=== PATIENT | female | born 1960 | race Caucasian/White ===

== ENCOUNTER 2023-10-30 20:42 | Emergency (ER) | payer MEDICARE, SELFPAY ==
[2023-10-30 20:44] VITALS: BP 156/99; PULSE 65; RESP 20; TEMP 36.6; O2SAT 98; BMI 21.4
--- NOTE | 2023-10-30 21:14 | ED_ITS ---
HPI - Anxiety General: Chief Complaint: Anxiety Stated Complaint: htn, anxiety Time Seen by Provider: 10/30/23 20:44 History of Present Illness: Patient reports to the ER by EMS with hypertension. The patient took her blood pressure is approximately 175/110 and she got anxious and family called EMS because they did not want her to have a stroke. Patient does admit to drinking 8 beers today. And having some shortness of breath headache and dizziness for the last 3 days. Patient does report history of hypertension but is not been to the doctor in 6 very months and takes no medicines.. Patient does appear anxious at this time. Family is with patient at bedside patient is reluctant to do any treatment at all. And has declined to have anything done by the EMS on her way here. Review of Systems General: Reports: 10 or more systems reviewed and unremarkable except in HPI and below Physical Exam Const: COMMON NORMALS: no acute distress, average body habitus, patient oriented x3, no limitations, healthy appearing, alert and well nourished HENMT: COMMON NORMALS: normocephalic, atraumatic, hearing grossly normal bilaterally, external ears normal, Normal external nose present, moist oral mucous membranes and oropharynx normal HEAD & SCALP: normocephalic and atraumatic NOSE: Normal external nose present EXTERNAL EAR: Yes external ears normal Neck/C-Spine: COMMON NORMALS: no JVD Chest: COMMONS NORMALS: normal inspection of the chest and normal palpation of entire chest wall Resp: COMMON NORMALS: normal respiratory effort, No retractions, No use of accessory muscles and clear to auscultation bilaterally AUSCULTATION: clear to auscultation bilaterally Cardio: COMMON NORMALS: no JVD, regular rate, regular rhythm, S1 normal heart sound present, S2 normal heart sound present, No gallops present (Cardio), No clicks present (Cardio), No murmurs present (Cardio) and No rub (Cardio) RATE: regular rate RHYTHM: regular rhythm HEART SOUNDS: S1 normal heart sound present and S2 normal heart sound present GI: COMMON NORMALS: Normal to inspection, nondistended, normoactive bowel sounds present, Soft to palpation, non-tender, No hepatosplenomegaly present and no masses PALPATION: Yes Soft to palpation and Yes No hepatosplenomegaly present Neuro: COMMON NORMALS: patient oriented x3 SENSORIUM/ORIENTATION: Yes alert Course Vital Signs: Vital signs: Vital Signs Temperature 97.8 F 10/30/23 20:44 Pulse Rate 65 10/30/23 20:44 Respiratory Rate 20 H 10/30/23 20:44 Blood Pressure 156/99 10/30/23 20:44 Pulse Oximetry 98 10/30/23 20:44 MDM - Anxiety Medical Decision Making Patient is reluctant to have any testing done here. Upon patient's arrival her blood pressure was 156/99. Family is at bedside and said they will make her take her blood pressure on a daily basis keep a blood pressure log and take her to her family doctor. Patient has insurance and she can afford to go where she has not had in the past. Differential Diagnosis Likely acute anxiety; Unlikely hyperventilation or panic disorder Medical Records I reviewed the patient's medical records. Lab Data I reviewed the patient's lab results. No radiology studies performed this visit Discharge Plan Discharge Patient Disposition: Home Clinical Impression: Acute anxiety, Hypertension Condition: Stable Discharge Orders: Discharge ED (Routine); Ordered 10/30/23 Ordered By: Iván Collado Patient Instructions: Anxiety (ED), Hypertension Activity Restrictions/Additional Instructions: Please purchase a blood pressure cuff and take your blood pressure at least 1 time daily and keep a log. Please bring that log to your next family practice doctors appointment. Please try to make this appointment within the next 1 or 2 weeks for further evaluation and treatment of your anxiety and your blood pressure. Coding Level of Care Code ED Broadband Installer for Roxanne Ellison
== END 2023-10-30 21:28 | disposition home or self-care (01) ==
PROVIDERS: Emergency Provider Emergency Medicine
DX: F41.9 Anxiety disorder, unspecified (principal); I10 Essential (primary) hypertension
CPT/HCPCS: 99282

== ENCOUNTER 2025-06-30 11:41 | Emergency (ER) | payer OTHER, SELFPAY ==
[2025-06-30 11:50] VITALS: BP 153/92; PULSE 86; RESP 16; TEMP 36.7; O2SAT 96
--- OUTSIDE RECORDS SUMMARY | 2025-06-30 11:50 | XMS_ITS | Encounter Summary ---
Author Organization [facility] Address 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 Gender Identity Not on file Sexual Orientation Not on file documented as of this encounter Plan of Treatment Not on file documented as of this encounter Procedures Procedure Name Priority Date/Time Associated Diagnosis Comments HEPATITIS B SURFACE AB, QUANT Routine 06/04/2018 11:58 AM CDT documented in this encounter Results * HEPATITIS B SURFACE AB, QUANT (06/04/2018 11:58 AM CDT) HEPATITIS B SURF AB,QN 1,000.0 mlU/mL 06/04/2018 9:33 PM CDT [facility] HEPATITIS B SURFACE AB INTERP Reactive See Interp 06/04/2018 9:33 PM CDT [facility] Blood Venipuncture / Unknown 06/04/2018 11:58 AM CDT 06/04/2018 12:16 PM CDT Narrative [facility] - 06/04/2018 9:33 PM CDT Patient has immunity to Hepatitis B virus. This assay is used to determine immune status to Hepatitis B as greater than or equal to 10 mIU/mL as per CDC guidelines (MMWR:vol 55: RR-16, 2006). us External Provider [facility] CHEMISTRY ORDERABLES Glenna warren Result Performing Organization Address [facility]/ZIP Co de Phone Number [facility]# [id number] [address] [facility] [place] [address] documented in this encounter Visit Diagnoses Not on filedocumented in this encounter Care Teams Internet Project Manager Relationship Specialty Start Date End Date Reno Vega DO [address] [place] [address] PCP - General Family Practice 09/10/17 documented as of this encounter
--- OUTSIDE RECORDS SUMMARY | 2025-06-30 11:50 | XMS_ITS | Clinical Summary ---
Author Organization [facility] Address [address] [place] [address] Phone Care Team Providers Care Phytochemistry Professor Name Role Phone Reno Vega DO Primary Care Provider [phone] Allergies No known active allergies Medications predniSONE (DELTASONE) 20 mg tabletIndications :Spider bite wound, undetermined intent, initial encounter Take 1 Tablet (20 mg) by mouth daily. 5 Tablet 5 Active mupirocin (BACTROBAN) 2 % OintmentIndicatio ns:Spider bite wound, undetermined intent, initial encounter Apply to affected area daily. 30 Gram 5 Active Active Problems No known active problems Encounters Date Type Department Care Team Description 06/21/2025 External Device Data [facility] ABSTRACTION Provider, Abstract 05/31/2025 External Device Data [facility]CTION Provider, Abstract 05/09/2025 External Device Data [facility] Provider, Abstract 04/25/2025 External Device Data [facility] AB[facility]CTION Provider, Abstract 04/25/2025 External Device Data [facility] AB[facility]CTION Provider, Abstract 04/25/2025 External Device Data [facility]CTION Provider, Abstract 04/24/2025 Results Follow-Up [address] [phone] Rosa Pablo NP C-REACTIVE PROTEIN, COMPREHENSIVE METABOLIC PANEL, CBC WITH DIFFERENTIAL 04/21/2025 4:00 PM CDT Office Visit [address] [phone] Rosa Pablo NP Spider bite wound, undetermined intent, initial encounter (Primary Dx); Screening mammogram, encounter for from Last 3 Months Immunizations Immunization Administration Dates Next Due Influenza Seasonal Unspecified Formulation IM ,08/17/2017 Social History Tobacco Use Types Packs/Day Years Used Date Smoking Tobacco: Every Day Cigarettes Smokeless Tobacco: Never Tobacco Cessation:Ready to Q uit: Not Asked; Counseling Given: Not Answered Comments No Sex and Gender Information Value Date Recorded Sex Assigned at Not on file 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 Gender Identity Not on file Sexual Orientation Not on file Last Filed Vital Signs Vital Sign Reading Time Taken Comments Blood Pressure 138/81 04/21/2025 3:52 PM CDT Pulse 95 04/21/2025 3:52 PM CDT Temperature 36.9 C (98.4 F) 04/21/2025 3:52 PM CDT Respiratory Rate 16 04/21/2025 3:52 PM CDT Oxygen Saturation 98% 04/21/2025 3:52 PM CDT Inhaled Oxygen Concentration - - Weight 57.5 kg (126 lb 12.8 oz) 04/21/2025 3:52 PM CDT Height 157.5 cm (5' 2 ) 04/21/2025 3:52 PM CDT Body Mass Index 23.19 04/21/2025 3:52 PM CDT Plan of Treatment Health Maintenance Due Date Last Done Comments FIT/ DNA Q 3 YEARS (AUTO ORDER) 1977 FIT/FOBT Q 1 YEAR (AUTO ORDER) 1977 DTAP/TDAP/TD VACCINES (1 - Tdap) 1978 PNEUMOCOCCAL VACCINE 50+ YEA RS (1 of 2 - PCV) 1978 BREAST CANCER SCREENING 1999 COLORECTAL CANCER SCREENING (AUTO ORDER) 2004 COLORECTAL SCREENING 2004 Colorectal Cancer Screening 2004 FIT-DNA Q 3 years 2004 FIT/FOBT Q 1 year 2004 Flex Sig/CT Colonography Q 5 years 2004 ZOSTER VACCINE (1 of 2) 2009 Colorectal Cancer Screening (AUTO ORDER) 12/31/2011 FLEX SIG/CT COLONOGRAPHY Q 5 YEARS (AUTO ORDER) 12/31/2011 12/31/2006, 12/31/2006 [place] Prev entative Visit/Annual Wellness Visit 11/16/2024 OSTEOPOROSIS SCREENING 2024 INFLUENZA VACCINE (#1) 2025 08/02/2018, 2016 RSV VACCINE (60+ or ) (1 - 1-dose 75+ series) 2034 Procedures Procedure Name Priority Date/Time Associated Diagnosis Comments CBC WITH DIFFERENTIAL Routine 04/21/2025 4:27 PM CDT Spider bite wound, undetermined intent, initial encounter COMPREHENSIVE METABOLIC PANEL Routine 04/21/2025 4:27 PM CDT Spider bite wound, undetermined intent, initial encounter C-REACTIVE PROTEIN Routine 04/21/2025 4: 27 PM CDT Spider bite wound, undetermined intent, initial encounter from Last 3 Months Results * (ABNORMAL) CBC WITH DIFFERENTIAL (04/21/2025 4:27 PM CDT) WBC 10.5 3.8 - 10.8 Thousand/u L [facility] RBC 4.53 3.80 - 5.10 Million/uL [facility] HEMOGLOBIN 15.2 11.7 - 15.5 g/dL [facility] HEMATOCRIT 47.1(H) 35.0 - 45.0 % [facility] MCV 104.0(H) 80.0 - 100.0 fL [facility] MCH 33.6(H) 27.0 - 33.0 pg [facility] MCHC 32.3 32.0 - 36.0 g/dL [facility] Comment: For adults, a slight decrease in the calculated MCHC value (in the range of 30 to 32 g/dL) is most likely not clinically significant; however, it should be interpreted with caution in correlation with other red cell parameters and the patient's clinical condition. RDW 11.8 11.0 - 15.0 % [facility] PLATELETS 276 140 - 400 Thousand/u L [facility] MPV 11.4 7.5 - 12.5 fL [facility] NEUTROPHIL ABSOLUTE 4,725 1,500 - 7,800 cells/uL [facility] LYMPHOCYTE ABSOLUTE 4,851(H) 850 - 3,900 cells/uL [facility] MONOCYTE ABSOLUTE 546 200 - 950 cells/uL [facility] EOSINOPHIL ABSOLUTE 315 15 - 500 cells/uL [facility] BASOPHILS ABSOLUTE 63 0 - 200 cells/uL [facility] NEUTROPHIL 45 % [facility] LYMPHOCYTES 46.2 % [facility] MONOCYTE 5.2 % [facility] EOSINOPHILS 3.0 % [facility] BASOPHILS 0.6 % [facility] Comment: Test Performed at: [facility] [id number] [facility] [place] [address] Zuri Pierce MD Blood 04/21/2025 4:27 PM CDT 04/23/2025 4:41 AM CDT us Rosa Pablo NP HEMATOLOGY ORDERABLES Final Re sult Performing Organization Address [facility]/ZIP Co de Phone Number [facility] [phone] [facility] [address] [place] [phone] * C-REACTIVE PROTEIN (04/21/2025 4:27 PM CDT) [facility] CRP 3.7 <8.0 mg/L [facility] Comment: Test Performed at: [facility] [address] [place] [address] Zuri Pierce MD Blood 04/21/2025 4:27 PM CDT 04/23/2025 4:41 AM CDT us Rosa Pablo CENTRAL SUPPLY AIDE CHEMISTRY ORDERABLES Final Res ult Performing Organization Address [facility]/ZIP Co de Phone Number [facility] [phone] [facility] [address] [place] [address] * (ABNORMAL) COMPREHENSIVE METABOLIC PANEL (04/21/2025 4:27 PM CDT) GLUCOSE 85 65 - 99 mg/dL [facility] Comment: Fasting reference interval BUN 11 7 - 25 mg/dL [facility] CREATININE 0.53 0.50 - 1.05 mg/dL [facility] GFR 103 > OR = 60 mL/min/1. 73m2 [facility] BUN/CREAT RATIO SEE NOTE: 6 - 22 (calc) [facility] Comment: Not Reported: BUN and Creatinine are within reference range. SODIUM 139 135 - 146 mmol/L [facility] POTASSIUM 4.2 3.5 - 5.3 mmol/L [facility] CHLORIDE 104 98 - 110 mmol/L [facility] CO2 27 20 - 32 mmol/L [facility] CALCIUM 10.7(H) 8.6 - 10.4 mg/dL [facility] TOTAL PROTEIN 7.0 6.1 - 8.1 g/dL [facility] ALBUMIN 4.5 3.6 - 5.1 g/dL [facility] GLOBULIN 2.5 1.9 - 3.7 g/dL (calc) [facility] ALBUMIN/GLOBULIN RATIO 1.8 1.0 - 2.5 (calc) [facility] BILIRUBIN TOTAL 0.5 0.2 - 1.2 mg/dL [facility] ALKALINE PHOSPHATASE 110 37 - 153 U/L [facility] AST 17 10 - 35 U/L [facility] ALT 9 6 - 29 U/L [facility] Comment: Test Performed at: [facility] [id number] [place] [address] Zuri Pierce MD Blood 04/21/2025 4:27 PM CDT 04/23/2025 4:41 AM CDT us Rosa Pablo CENTRAL SUPPLY AIDE CHEMISTRY ORDERABLES Final Res ult [facility] [phone] [facility] [address] [place] [address] from Last [address] [facility] OPEN ACCESS [facility] [place]ICAID [place] Care Teams Phytochemistry Professor Relationship Specialty Start Date End Date Reno Vega DO [address] [place] [address] PCP - General Family Practice 09/10/17
--- OUTSIDE RECORDS SUMMARY | 2025-06-30 11:50 | XMS_ITS | Encounter Summary ---
Author Organization [facility] Address 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 Gender Identity Not on file Sexual Orientation Not on file documented as of this encounter Plan of Treatment Not on file documented as of this encounter Procedures Procedure Name Priority Date/Time Associated Diagnosis Comments URINALYSIS DIPSTICK ONLY Routine 06/03/2017 9:46 AM CDT RUBEOLA IGG Routine 06/03/2017 9:46 AM CDT RUBELLA IGG Routine 06/03/2017 9:46 AM CDT MUMPS IGG ANTIBODY Routine 06/03/2017 9: 46 AM CDT documented in this encounter Results * URINALYSIS DIPSTICK ONLY (06/03/2017 9:46 AM CDT) COLOR UA Yellow Pale to Dark Yellow 06/03/2017 10:50 AM CDT [facility] [place] CLARITY UA Clear Clear 06/03/2017 10:50 AM CDT [facility] [place] SPECIFIC GRAVITY UA 1.015 1.001 - 1.035 06/03/2017 10:50 AM T [facility] - [place] PH UA 7.0 5.0 - 8.0 06/03/2017 10:50 AM CDT [facility] [place] LEUKOCYTE ESTERASE UA Negative Negative 06/03/2017 10:50 AM CDT [facility] [place] NITRITE UA Negative Negative 06/03/2017 10:50 AM CDT [facility] [place] PROTEIN UA Negative Negative 06/03/2017 10:50 AM CDT [facility] [place] GLUCOSE UA Negative Negative 06/03/2017 10:50 AM CDT [facility] [place] KETONES UA Negative Negative 06/03/2017 10:50 AM CDT [facility] [place] UROBILINOGEN UA 0.2 <2.0 mg/dL 7 10:50 AM T [facility] [place] BILIRUBIN UA Negative Negative 06/03/2017 10:50 AM T [facility] [place] BLOOD UA Negative Negative 06/03/2017 10:50 AM T [facility] [place] Urine URINE SPECIMEN OBTAINED BY CLEAN CATCH PROCEDURE / Unknown Collection / Unknown 06/03/2017 9:46 AM CDT 06/03/2017 9:46 AM CDT us External Provider [facility] URINE ORDERABLES Final Re sult [facility] [employer] [facility]# [id number] [address] [place] [address] * MUMPS IGG ANTIBODY (06/03/2017 9:46 AM CDT) [facility] MUMPS IGG AB Negative 06/04/2017 3:19 PM CDT [facility] Comment: REFERENCE VALUE Vaccinated: Positive (>=1.1 AI) Unvaccinated: Negative (<=0.8 AI) MUMPS IGG INDEX 0.7 07/20/201 7 3:19 PM CDT [facility] Comment: Test Performed by: [address] [address] Blood Venipuncture / Unknown 06/03/2017 9:46 AM CDT 06/03/2017 9:46 AM CDT External Provider [facility] CHEMISTRY ORDERABLES Glenna l Result Performing Organization Address [facility] Co de Phone Number [facility] * RUBEOLA IGG (06/03/2017 9:46 AM CDT) RUBEOLA IGG Negative 06/04/2017 3:19 PM CDT [facility] Comment: REFERENCE VALUE Vaccinated: Positive (>=1.1 AI) Unvaccinated: Negative (<=0.8 AI) RUBEOLA IGG INDEX 0.4 06/04/2017 3:19 PM CDT [facility] Comment: Test Performed by: [address] [address] Blood Venipuncture / Unknown 06/03/2017 9:46 AM CDT 06/03/2017 9:46 AM CDT External Provider [facility] CHEMISTRY ORDERABLES Glenna l Result Performing Organization Address [facility] de Phone Number [facility] * RUBELLA IGG (06/03/2017 9:46 AM CDT) RUBELLA IGG IMMUNE Immune - Positive 06/03/2017 9:59 PM CDT [facility] Blood Venipuncture / Unknown 06/03/2017 9:46 AM CDT 06/03/2017 9:46 AM CDT [facility] - 06/03/2017 9:59 PM CDT A positive result suggests response to immunization or prior exposure to the virus. us External Provider [facility] CHEMISTRY ORDERABLES Glenna kelvin Result [facility]# [id number] [address] [facility] [place] [address] documented in this encounter Visit Diagnoses Not on filedocumented in this encounter Care Teams Plateman Relationship Specialty Start Date End Date Reno Vega DO [address] [place] [address] PCP - General Family Practice 09/10/17 documented as of this encounter
--- NOTE | 2025-06-30 14:01 | ED_ITS ---
HPI - Skin/Abscess/Foreign Bdy 2 General: Chief complaint: Skin/Abscess/Foreign Body Stated complaint: L side face spider bite worse Time Seen by Provider: 06/30/25 13:11 History of Present Illness: Patient is a 64-year-old female, comes in complaining of left cheek lesion. Initially, patient woke up and first week of April with a red spot to her left side of her cheek. She was seen by a [facility] clinic a week after this events, and was diagnosed with brown recluse bite. Patient stated she did not see a spider or feel a spider bite her, however she noted a spider in her kitchen after these events. Her daughter notes she was on antibiotics for 1 week, steroids for 5 days and then has not followed up due to no primary care physician. Associated symptoms: Deny chills, fever(s), nausea or vomiting Related Data Previous Rx's ?Medication ?Instructions ?Recorded doxycycline hyclate 100 mg capsule 100 mg PO BID 10 da ys #20 caps 06/30/25 Allergies Allergy/AdvReac Type Severity Reaction Status Date / Time No Known Allergies Allergy Verified 06/30/25 11:53 Review of Systems 2 General: Reports: 10 or more systems reviewed and unremarkable except in HPI and below Const: Denies: fever(s) or chills Eyes: Denies: change in vision, blurry vision, photophobia or eye discomfort ENMT: Reports: other (large lesion to left cheek); Denies: throat pain or mouth pain Card: Denies: chest pain, palpitations or swelling of feet/ankles Resp: Denies: dyspnea or non-productive cough GI: Denies: abdominal pain, nausea or vomiting : Denies: flank pain, dysuria or urinary incontinence Musc: Denies: neck pain or extremity pain Skin/Breast: Reports: skin tenderness and new lesions Neuro: Denies: headache(s) or numbness in extremities Psych: Denies: anxiety or depression Physical Exam 2 Const: COMMON NORMALS: patient oriented x3 HENMT: FACE & SINUS IMAGES: 1. large 6x5 cm, black center with rounded, erythematous edges Neck/C-Spine: COMMON NORMALS: full ROM, no lymphadenopathy and supple Lymph: LYMPHATIC: no lymphadenopathy noted Chest: COMMONS NORMALS: normal inspection of the chest and normal palpation of entire chest wall Resp: COMMON NORMALS: normal respiratory effort, No retractions and clear to auscultation bilaterally AUSCULTATION: clear to auscultation bilaterally Cardio: COMMON NORMALS: regular rate and regular rhythm RATE: regular rate RHYTHM: regular rhythm GI: COMMON NORMALS: Normal to inspection, nondistended, normoactive bowel sounds present, Soft to palpation and non-tender PALPATION: Yes Soft to palpation : COMMON NORMALS: Yes no CVA tenderness BLADDER/KIDNEY EXAM: Yes no CVA tenderness Back/Pelvis: COMMON NORMALS: no CVA tenderness Extremity: COMMON NORMALS: normal to inspection, full ROM and capillary refill normal Neuro: LOUISE COMA SCALE: document GCS findings COMMON NORMALS: patient oriented x3, CN's II-XII intact bilaterally and moves all extremities Psych: COMMON NORMALS: mental status grossly normal and Normal thought process present THOUGHT PROCESS: Normal thought process present Skin: COMMON NORMALS: no rashes or lesions noted, no wounds and turgor normal GENERAL SKIN EXAM: no rashes or lesions noted and turgor normal Course 2 Vital Signs: Vital signs: Vital Signs Temperature 98.0 F 06/30/25 11:50 Pulse Rate 78 06/30/25 14:14 Respiratory Rate 16 06/30/25 14:14 Blood Pressure 132/76 06/30/25 14:14 Pulse Oximetry 98 06/30/25 14:14 Oxygen Delivery Me thod Room Air 06/30/25 11:50 MDM - Skin/Abscess/Foreign Bdy Medicial Decision Making Patient's history is that she awoke first part of April with a small red area to her mid cheek, saw a [facility] clinic a week later which the wound then had black in the center, was diagnosed with brown recluse bite, treated with antibiotics, and steroids. Patient did not see or feel a bite, however she found a brown recluse in her kitchen after these events occurred. On physical examination, her left facial cheek appears to be consistent with a squamous cell carcinoma. However, typically a history of squamous cell carcinoma is more timely in nature. Patient is somewhat unsure of her history however is reassured and her daughter is the one that mainly gives the historian. Regardless, at this time, I would not feel comfortable moving forward with a diagnosis of brown recluse bite, and would be more comfortable with patient going to dermatology for biopsy and further care. If dermatology deems appropriate, patient then can go to wound care. Will treat her for localized cellulitis to this area with her friable red edges of this wound on her face, although I am not convinced it does need an antibiotic course. More than anything, it needs a biopsy. I discussed all of this with the patient and her daughter, that state understanding and referred her to dermatology as well. All of their questions answered to their satisfaction. All radiology interpretation(s) finalized by discharge Discharge Plan Discharge Patient Disposition: Home Clinical Impression: Lesion of skin of face Condition: Stable Prescriptions: New doxycycline hyclate 100 mg capsule 100 mg PO BID 10 Days Qty: 20 0RF Discharge Orders: Discharge ED (Routine); Ordered 06/30/25 Ordered By: Caty Eugene Referrals: Amelia Storm DO [Physician, Dermatology] Discharge Diet: Usual diet Discharge Activity: Resume usual activity Patient Instructions: Skin Biopsy (DC), Patient Portal & Nomi Instructions Activity Restrictions/Additional Instructions: Follow-up with dermatology?call for an immediate appointment on your referral for biopsy. Take antibiotics as prescribed. As we discussed, I am concerned that this is not a brown recluse bite and is actually a type of skin cancer. Take a probiotic or eat active culture yogurt to avoid infectious diarrhea with antibiotics. Return to ED for worsening issues, fever greater than 100.4 ?F As we discussed, I made a referral to case management to help you with a primary care physician. Print Language: Ukrainian Coding Level of Care Code ED Electrical Systems Design Engineer for Roxanne Ellison
[2025-06-30 14:14] VITALS: BP 132/76; PULSE 78; RESP 16; O2SAT 98
--- NOTE | 2025-07-03 11:45 | PC.NURSE ---
Referral sent to PCP and Derm.
== END 2025-06-30 14:15 | disposition home or self-care (01) ==
PROVIDERS: Emergency Provider Physician Assistant
DX: L98.9 Disorder of the skin and subcutaneous tissue, unspecified (principal)
CPT/HCPCS: 99283

== ENCOUNTER → 2025-07-10 10:42 | Outpatient (BNVA) | payer OTHER, SELFPAY | PROVIDERS: Visit Provider Dermatology | DX: R59.0 Localized enlarged lymph nodes (principal); L57.8 Other skin changes due to chronic exposure to nonionizing radiation; L82.1 Other seborrheic keratosis; D48.5 Neoplasm of uncertain behavior of skin | CPT/HCPCS: 11102; 99204 ==